=== PATIENT | female | born 1970 | race Caucasian/White ===

== ENCOUNTER 2018-07-22 20:37 | Emergency (ER) | payer OTHER ==
[~2018-07-22] VITALS: Ht 170.2 cm; Wt 83.9 kg
[2018-07-22] MEDS ORDERED: TOLTERODINE 2 MG (20:51)
[2018-07-22] MEDS ORDERED: HYDROXYZINE PAMOATE 25 MG (20:51)
[2018-07-22] MEDS ORDERED: CITALOPRAM 20 MG (20:51)
[2018-07-22] MEDS ORDERED: SPIRONOLACT TAB 25MG (20:51)
--- NOTE | 2018-07-22 20:55 | NUR ---
Patient arrived at the ER with chief complaint of wilmer right pal after handling a hot panx1 hour ago. Right hand appears reddened and patient reporte pain on affected area. Patient with ice pack on her right palm upon arrival to the ER. Patient AAOx4. Was crying due to pain on right palm. In no acute respiratory distress. No cardiovascular concern. No Gu/GI concern. Bed on lock position. Fall precaution per protocol.
--- NOTE | 2018-07-22 20:58 | NUR ---
CELESTINA ROBERTSON at bedside for MSE.
[2018-07-22] MEDS ORDERED: HYDROCODONE/APAP 5-325MG TABLET ONE (21:11)
[2018-07-22] MEDS ORDERED: HYDROCODONE/APAP 5-325MG TABLET PO ONE (21:15)
--- NOTE | 2018-07-22 21:20 | NUR ---
Patient discharged to home in stable conditon. Written and verbal after care instructions given. Patient verbalizes understanding of instructions. Name tag removed. Patient ambulated out of ER with steady gait. All belongings with patient.
== END 2018-07-22 21:25 | disposition home or self-care (01) ==
LOC: ER 20:38
DX: T23.101A Burn of first degree of right hand, unspecified site, initial encounter (principal); Z88.5 Allergy status to narcotic agent; Z79.899 Other long term (current) drug therapy; X19.XXXA Contact with other heat and hot substances, initial encounter; Y93.89 Activity, other specified; Y92.89 Other specified places as the place of occurrence of the external cause; Y99.8 Other external cause status
CPT/HCPCS: A4663